=== PATIENT | male | born 1970 | race Caucasian/White ===

== ENCOUNTER 2023-07-03 10:03 | Emergency (ER) | payer BC, SELFPAY ==
[2023-07-03 10:09] VITALS: BP 137/95
--- NOTE | 2023-07-03 10:19 | ED.GENMED ---
History of Present Illness
General
Chief Complaint: Musculo-Skeletal Complaint
Time Seen by Provider: 07/03/23 10:16
Travel History
Have you had any contact with someone who has COVID-19?: No
Do you have any symptoms of coronavirus? Fever > 100 degrees, chills, cough, shortness of breath, sore throat, loss of taste or smell, muscle aches, or headache?: No
History of Present Illness
History of Present Illness:
HPI: Patient presents due to sensation of discomfort of the right fifth digit ongoing for the past 2 to 3 weeks. He thinks he may have struck his hand against the car door around the time the symptoms started. The symptoms worsen when he attempts
flexion at the right fifth digit. He keeps saying that it feels as if there is something inside the right fifth digit
EXAM:
GENERAL: Well appearing in no distress
HEENT: Moist oral mucosa
NEUROLOGIC: Excellent strength all extremities, no coordination deficits
PSYCHIATRIC: Appropriate mental status, normal insight and judgement
EXTREMITIES: Nontender, no edema, moves all extremities equally, he has very good active range of motion at the hand and fingers. Negative testing for carpal tunnel syndrome
SKIN: No rash, no lesions
ED COURSE:
10:30 AM: I initially evaluated patient
NUMBER AND COMPLEXITY OF PROBLEMS ADDRESSED AT THE ENCOUNTER
� Chronic conditions affecting care: Diabetes
� Acute Exacerbation and/or Progression of Chronic Illness: This is an acute problem.
� Differential Diagnosis includes: Hand contusion, hand fracture, cellulitis, diabetic neuropathy, carpal tunnel syndrome
AMOUNT AND/OR COMPLEXITY OF DATA TO BE REVIEWED AND ANALYZED
� I performed an independent evaluation of and my interpretation is:
EKG:
CT:
X-rays: I personally reviewed x-ray and see no clear acute abnormality to explain the cause of his symptom
Laboratory Studies:
Other:
� Review of other/old records: The patient was admitted here in 2018 with new onset diabetes
� Clinical information was obtained by an independent historian:
� Prescriptions/Medications Considered but not given:
� Further testing considered but not performed:
RISK OF COMPLICATIONS AND/OR MORBIDITY OR MORTALITY OF PATIENT MANAGEMENT
� Social determinants of health affecting care: Lives at home
� Discussion with other providers:
� Escalation of care including admission/observation vs risk of discharge considered: I considered and finger splint but the patient declined. Will give contact patient for local hand specialist as well. Blood sugar was
elevated and I did inform of need for proper diabetes management.
Past History
Past History
ED Past Medical History: None
ED Past Surgical History: Other (nasal sx)
Social History
Tobacco: Non-smoker
Personal:
Phy Exam
Physical Exam
Physical Exam:
See HPI
Course
Orders/Labs/Results
Orders:
Orders
07/03/23 10:13
Hand, Right 3 View [CR Hand - Right Min 3 Views] Urgent
Comment:
Reason For Exam: injury
07/03/23 10:47
Bedside Glucose- Treatment ONCE
Abnormal Lab Results
07/03/23
10:49
POC Glucose 215 H mg/dl
(70-99)
Vital Signs
Initial and Last Documented VS:
Initial Vital Signs
Temp Pulse Resp BP Pulse Ox
98.2 F 91 17 137/95 97
07/03/23 10:09 07/03/23 10:09 07/03/23 10:07/03/23 10:09 07/03/23 10:09
Last Documented Vital Signs
Temp Pulse Resp BP Pulse Ox
98.2 F 91 17 137/95 97
07/03/23 10:09 07/03/23 10:07/03/23 10:07/03/23 10:07/03/23 10:09
*Critical Care Note
Total Time (30-74mins, 75-104mins- exclusive of procedures): Not Applicable
ED Attending Note
-
Portions of this chart may have been created with voice recognition software.� Occasional wrong word or��sound alike� substitutions may have occurred due to the inherent limitations of voice recognition software.
Discharge Plan
Departure
Patient Disposition: Home (Routine Discharge)
Date of Disposition: 07/03/23
Time of Disposition: 11:14
Patient with high blood pressure during this ER visit?: Yes
Discharge Problem:
Contusion of finger
Instructions: Contusion (DC)
Prescriptions:
No Action
lisinopril 2.5 MG tablet
2.5 mg PO DAILY Qty: 30 0RF
(DME) lancets-blood glucose strips [Fora [id number] [facility]] 1 EACH combo pack
1 ea MC AC 30 Days Qty: 1 0RF
(DME) pen needle, diabetic [Easy Touch] 1 EACH needle
1 ea MC QPM 30 Days Qty: 30 0RF
insulin glargine [Lantus Solostar U-100 Insulin] 300 UNITS/3 ML insulin pen
20 units SC HS Qty: 5 0RF
glimepiride 1 MG tablet
1 mg PO DAILY@0800 Qty: 30 0RF
metformin 1,000 MG tablet
1,000 mg PO BID@0800,1700 Qty: 60 0RF
Rx Instructions:
Take 1000 mg with breakfast and 1000 mg with dinner.
Referrals:
UNKNOWN - PT DOES,NOT KNOW [Family Provider] -
Activity Restrictions/Additional Instructions:
The exact cause of your symptoms is unclear. I have given you the contact information for a local orthopedist/hand specialist. Consider ibuprofen for pain if needed. Your blood sugar was somewhat high at 215. Be sure to continue your diabetes
medications and continue to check your blood sugars. I see no clear sign of infection. It does not appear that this is carpal tunnel syndrome. The radiologist did ultimately read the x-ray and also sees no abnormality.
Interventions
Interventions:
*Risk Screen - Suicide Last Done: 07/03/23 10:11
*General Assessment Last Done: 07/03/23 10:11
*Neglect/Abuse Screening Last Done: 07/03/23 10:11
ED-Musculoskeletal Assessment Last Done: 07/03/23 10:24
[2023-07-03 10:50] LABS: Glucose - Point of Care 215 mg/dl (70-99)
== END 2023-07-03 11:39 | disposition home or self-care (01) ==
LOC: EMR 10:03
PROVIDERS: EMERGENCY PHYSICIAN Emergency Medicine
DX: S60.051A Contusion of right little finger without damage to nail, initial encounter (principal); X58.XXXA Exposure to other specified factors, initial encounter; E11.65 Type 2 diabetes mellitus with hyperglycemia
CPT/HCPCS: 99283; 73130; 82962

== ENCOUNTER 2023-07-09 20:42 | Emergency (ER) | payer BC, SELFPAY ==
[2023-07-09 20:54] VITALS: BP 153/101
[2023-07-09 21:23] LABS: COVID-19 Antigen Positive (Negative)
--- NOTE | 2023-07-09 21:58 | ED.GENMED ---
History of Present Illness
General
Chief Complaint: Cold/Flu/URI Symptoms
Source: patient
Exam Limitations: none
Time Seen by Provider: 07/09/23 21:46
Nursing documentation reviewed up to this point in time: agreed with
Travel History
Have you had any contact with someone who has COVID-19?: Yes
Comment: and daughter
Do you have any symptoms of coronavirus? Fever > 100 degrees, chills, cough, shortness of breath, sore throat, loss of taste or smell, muscle aches, or headache?: Yes
Symptoms:: cough, congestion
History of Present Illness
History of Present Illness:
Patien to ED for COVID testing. States his and daughter tested positive yesterday. He reports slight cough x 24 hours. Brought self to ED for eval.
Past History
Past History
ED Past Medical History: Hypercholesterolemia and NIDDM
ED Past Surgical History: Other (nasal sx)
Social History
Tobacco: Non-smoker
Personal:
Review of Systems
Review of Systems
Allergies reviewed?: Yes
All Other Systems: ROS reviewed and negative except as documented in HPI and ROS
Constitutional: Reports no symptoms
EENT: Reports no symptoms
Respiratory: Reports cough
Cardiac: Reports no symptoms
ABD/GI: Reports no symptoms
: Reports no symptoms
Musculoskeletal: Reports no symptoms
Skin: Reports no symptoms
Neurological: Reports no symptoms
Psychiatric: Reports no symptoms
Phy Exam
General Physical Exam
General Presentation: well appearing and no apparent distress
General age: appears stated age
General Skin: warm and dry
General Habitus: normal
General Mental: alert
Cardiovascular Exam
Cardiovascular Exam: regular rate/rhythm
Pulmonary Exam
Pulmonary Exam: lungs clear, no respiratory distress and chest non tender
Gastrointestinal Exam
Gastrointestinal Exam: normal bowel sounds, non tender and soft
Musculoskeletal Exam
Musculoskeletal Exam: full ROM and neuro vasc intact
Skin Exam
Skin Exam: normal color, warm/dry and no rash
Psychiatric Exam
Psychiatric Exam: normal mood/affect
Course
Orders/Labs/Results
Orders:
Orders
07/09/23 21:00
COVID-19 Antigen Urgent
Source: Nasal Swab
Abnormal Lab Results
07/09/23
21:00
SARS-CoV-2 Antigen Positive A
(Negative)
Vital Signs
Initial and Last Documented VS:
Initial Vital Signs
Temp Pulse Resp BP Pulse Ox
99.6 F 100 18 153/101 99
07/09/23 20:54 07/09/23 20:54 07/09/23 20:54 07/09/23 20:54 07/09/23 20:54
Last Documented Vital Signs
Temp Pulse Resp BP Pulse Ox
99.6 F 100 18 148/90 96
07/09/23 20:54 07/09/23 22:25 07/09/23 22:25 07/09/23 22:25 07/09/23 22:25
*Critical Care Note
Total Time (30-74mins, 75-104mins- exclusive of procedures): Not Applicable
Update Note
Update Note:
Patient tested pos for COVID in dept. Mild symptoms presently. He is in no distress. Requesting Paxlovid as recommended by family friend. Risk/benefits of med discussed. Patient is still interested in taking. He will stop atorvastain while
taking med. Rx sent to his pharmacy. Given instructions on s/s to return to ED and he is agreeable to plan.
ED Attending Note
-
Portions of this chart may have been created with voice recognition software.� Occasional wrong word or��sound alike� substitutions may have occurred due to the inherent limitations of voice recognition software.
Discharge Plan
Departure
Patient Disposition: Home (Routine Discharge)
Date of Disposition: 07/09/23
Time of Disposition: 22:03
Patient with high blood pressure during this ER visit?: No
Condition: Good
Covid-19: Not Applicable
Discharge Problem:
COVID-19
Instructions: COVID-19 (DC), Coronavirus Home Quarantine
Prescriptions:
New
Paxlovid 150-100 mg tablets,dose pack
See Rx Instructions .ROUTE .COMPLEX Qty: 20 0RF
Rx Instructions:
orally per package directions
No Action
lisinopril 2.5 MG tablet
2.5 mg PO DAILY Qty: 30 0RF
(DME) lancets-blood glucose strips [Fora [id number] [facility]] 1 EACH combo pack
1 ea MC AC 30 Days Qty: 1 0RF
(DME) pen needle, diabetic [Easy Touch] 1 EACH needle
1 ea MC QPM 30 Days Qty: 30 0RF
insulin glargine [Lantus Solostar U-100 Insulin] 300 UNITS/3 ML insulin pen
20 units SC HS Qty: 5 0RF
glimepiride 1 MG tablet
1 mg PO DAILY@0800 Qty: 30 0RF
metformin 1,000 MG tablet
1,000 mg PO BID@0800,1700 Qty: 60 0RF
Rx Instructions:
Take 1000 mg with breakfast and 1000 mg with dinner.
Activity Restrictions/Additional Instructions:
Follow up with your family doctor. Return to the emergency department immediately for any difficulty breathing, fever not responding to tylenol or motrin, weakness or lethargy, or for any further concerns.
Interventions
Interventions:
*Risk Screen - Suicide Last Done: 07/09/23 22:22
*General Assessment Last Done: 07/09/23 22:19
*Neglect/Abuse Screening Last Done: 07/09/23 22:22
ED- Fall Risk Assessment Last Done: 02/09/24 22:24
*ED COVID-19 Vaccine History Last Done: 07/09/23 22:19
*Nursing Disposition Last Done: 07/09/23 22:25
ED- Pulmonary Assessment Last Done: 07/09/23 22:24
Discharge Date and Time
Discharge Date/Time: 07/09/23 22:27
[2023-07-09 22:18] VITALS: BMI 27.3
[2023-07-09 22:25] VITALS: BP 148/90
== END 2023-07-09 22:27 | disposition home or self-care (01) ==
LOC: EMR 20:42
PROVIDERS: EMERGENCY PHYSICIAN Emergency Medicine; FAMILY PHYSICIAN Internal Medicine
DX: U07.1 COVID-19 (principal)
CPT/HCPCS: 99283; 87811

== ENCOUNTER → 2024-10-07 07:55 | Outpatient (REF) | payer BC, SELFPAY | LOC: MRI 3T 07:55 | PROVIDERS: ATTENDING PHYSICIAN Psychiatry & Neurology Neurology; FAMILY PHYSICIAN Internal Medicine | DX: M54.16 Radiculopathy, lumbar region (principal) | CPT/HCPCS: 72148 ==